=== PATIENT | male | born 1995 | race Caucasian/White ===

== ENCOUNTER 2016-09-11 19:34 | Emergency (ER) | payer OTHER ==
[~2016-09-11 19:34] MED LIST: ATI2I IM; GEODON20 M1 IM; GEODON20 MG PO; SERO100 PO
[2016-09-11 20:49] LABS: BASOPHIL % 1.9 % (0-2); PLATELET COUNT 264 x10^3mcL (130-400)
[2016-09-11 20:50] LABS: RED CELL DISTRIBUTION WIDTH 14.6 % (11.5-14.5)
[2016-09-11 21:08] LABS: CALCIUM 8.4 mg/dL (8.5-10.1); CARBON DIOXIDE 26.8 mmol/L (21-32); CHLORIDE SERUM 107 mmol/L (98-107); CREATININE SERUM 0.8 mg/dL (0.7-1.3); GFR1 > 60 mL/min; GLUCOSE SERUM 120 mg/dL (74-106); POTASSIUM SERUM 3.5 mmol/L (3.5-5.1); SODIUM SERUM 144 mmol/L (136-145)
[2016-09-11 21:10] LABS: ALBUMIN 3.8 g/dL (3.4-5.0); ALKALINE PHOSPHATASE 88 U/L (46-116); ALT/SGPT 24 U/L (16-63); AST/SGOT 23 U/L (15-37); BILIRUBIN TOTAL 0.17 mg/dL (0.20-1.00); TOTAL PROTEIN, SERUM 7.5 g/dL (6.4-8.2)
[2016-09-11 23:20] VITALS: BP 122/72
== END 2016-09-11 23:15 | disposition home or self-care (01) ==
LOC: ED 19:34
PROVIDERS: Emergency Medicine
DX: F10.129 Alcohol abuse with intoxication, unspecified (principal)
CPT/HCPCS: G0480

== ENCOUNTER 2019-10-06 11:44 | Emergency (ER) | payer OTHER ==
[~2019-10-06] VITALS: Ht 172.7 cm; Wt 91.6 kg
[2019-10-06 11:51] VITALS: Ht 172.7 cm; Wt 91.6 kg
[2019-10-06 13:26] LABS: BASOPHIL % 0.4 % (0-2); PLATELET COUNT 299 x10^3mcL (130-400)
[2019-10-06 13:27] LABS: RED CELL DISTRIBUTION WIDTH 15.3 % (11.5-14.5)
[2019-10-06 13:45] LABS: CALCIUM 9.4 mg/dL (8.5-10.1); CARBON DIOXIDE 27.7 mmol/L (21-32); CHLORIDE SERUM 105 mmol/L (98-107); CREATININE SERUM 0.9 mg/dL (0.7-1.3); GFR1 > 60 mL/min; GLUCOSE SERUM 89 mg/dL (74-106); POTASSIUM SERUM 4.1 mmol/L (3.5-5.1); SODIUM SERUM 143 mmol/L (136-145)
[2019-10-06 13:49] LABS: ALBUMIN 3.9 g/dL (3.4-5.0); ALKALINE PHOSPHATASE 61 U/L (46-116); ALT/SGPT 37 U/L (16-63); AST/SGOT 23 U/L (15-37); BILIRUBIN TOTAL 0.4 mg/dL (0.20-1.00); LIPASE 114 IU/L (73-393); TOTAL PROTEIN, SERUM 7.8 g/dL (6.4-8.2)
[2019-10-06 14:14] LABS: microscopic required? NO
[2019-10-06 14:28] LABS: UA SPECIFIC GRAVITY >=1.030 (1.005-1.035); urine erythrocyte NEGATIVE (NEGATIVE)
[2019-10-06 14:55] VITALS: BP 124/86
== END 2019-10-06 14:55 | disposition home or self-care (01) ==
LOC: ED 11:44
PROVIDERS: Emergency Medicine
DX: K29.20 Alcoholic gastritis without bleeding (principal); F17.210 Nicotine dependence, cigarettes, uncomplicated
CPT/HCPCS: 36415

== ENCOUNTER 2019-10-25 23:33 | Emergency (ER) | payer MEDICAID ==
[~2019-10-25] VITALS: Ht 172.7 cm; Wt 94.9 kg
[2019-10-25 23:44] VITALS: Ht 172.7 cm; Wt 94.9 kg
[2019-10-26 01:31] VITALS: BP 146/89
== END 2019-10-26 01:32 | disposition home or self-care (01) ==
LOC: ED 23:33
DX: N48.22 Cellulitis of corpus cavernosum and penis (principal)
CPT/HCPCS: 87491; 87591

== ENCOUNTER 2019-12-27 23:53 | Emergency (ER) | payer MEDICAID ==
[~2019-12-27] VITALS: Ht 172.7 cm; Wt 64.0 kg
[2019-12-28 00:03] VITALS: Ht 172.7 cm; Wt 64.0 kg
[2019-12-28 07:48] VITALS: BP 138/75
== END 2019-12-28 07:48 | disposition home or self-care (01) ==
LOC: ED 23:53
DX: R53.1 Weakness (principal)
CPT/HCPCS: 82962